=== PATIENT | male | born 1940 | race Caucasian/White ===

== ENCOUNTER → 2018-01-15 | Outpatient (CLI) | payer MEDICARE, OTHER | LOC: GMAM 11:49 | PROVIDERS: ATTEND Family Medicine | DX: R60.0 Localized edema (principal); R53.83 Other fatigue; N39.41 Urge incontinence; Z12.5 Encounter for screening for malignant neoplasm of prostate | CPT/HCPCS: 84439; 84443; 87086; G0103 ==

== ENCOUNTER → 2018-01-23 | Outpatient (CLI) | payer OTHER ==
--- NOTE | 2018-01-23 13:19 | MRI ---
CLINICAL HISTORY: 77 years Male, DOUBLE VISION COMPARISON: None available. TECHNIQUE: Multiplanar multiecho imaging of the brain was performed before and after the administration of intravenous contrast. FINDINGS: Significant T2 and FLAIR hyperintensities are identified in the bilateral frontal lobes. There is mild diffuse cortical volume loss as well. No acute major vascular territorial infarct or acute intraparenchymal hemorrhage. No intra-axial or extra-axial fluid collections are identified. No space-occupying lesion is identified. The cisterns and ventricles appear normal in caliber. The sella and suprasellar regions demonstrate no gross abnormality. The structures of the posterior fossa are intact. The visualized paranasal sinuses and mastoid air cells appear normal. The globes are intact bilaterally. Review of the bones demonstrates no gross abnormality. IMPRESSION: Significant T2 and FLAIR hyperintensities are identified in the bilateral frontal lobes. 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 Electronically signed by: Carolyn Whitlock MD 01/23/2018 1:17 PM CDT
== END ==
LOC: MRI 08:01
PROVIDERS: ATTEND Family Medicine
DX: H53.2 Diplopia (principal)

== ENCOUNTER 2018-06-02 11:40 | Emergency (ER) | payer MEDICARE, OTHER ==
[2018-06-02 12:12] VITALS: TEMP 98.3
--- NOTE | 2018-06-02 12:26 | ED.PDOC ---
History of Present Illness - General Chief Complaint: Trauma Stated Complaint: left groin pain Time Seen by Provider: 06/02/18 12:13 Source: patient Exam Limitations: no limitations - History of Present Illness Initial Comments: Marco Antonio Mccracken 77 y/o male [place] resident stated that he went outside the patio of [place] yesterday as he was trying to sit on a chair half way it tilted down causing him to fall on his buttocks then back of head hitting part of the chair.No LOC ,denies headache,but with sharp pains left groin on walking,no numbness or weakness,denies back pain. Timing/Duration: other - see hpi Severity: moderate Improving Factors: rest Worsening Factors: movement Associated Symptoms: other - see hpi Allergies/Adverse Reactions: Allergies NO KNOWN ALLERGY Allergy (Verified 06/02/18 12:01) Home Medications: Ambulatory Orders Tramadol HCl 50 mg PO TID PRN #20 tab 06/02/18 Review of Systems - Review of Systems Constitutional: States: no symptoms reported EENTM: States: no symptoms reported Respiratory: States: no symptoms reported Cardiology: States: no symptoms reported Gastrointestinal/Abdominal: States: no symptoms reported Genitourinary: States: no symptoms reported Musculoskeletal: States: see HPI Skin: States: no symptoms reported Neurological: States: no symptoms reported Past Medical History (General) - Patient Medical History Hx Stroke: No Hx Dementia: Yes Hx of COPD: No Hx Cardiac Disorders: Yes Hx Congestive Heart Failure: Yes Hx Diabetes: No Surgical History: other - ORIF right leg FX - Social History Hx Depression: Yes - Activities of Daily Living Senior Living/Assisted Living (if applicable):: [facility] (if applicable): [email or web address] Grooming Ability: Independent Eating (Feeding) Ability: Independent Toileting Ability: Independent Family Medical History - Family History Mother Family History: No Known Physical Exam - Physical Exam General Appearance: Alert, Comfortable, No apparent distress, Well Developed, Well Groomed Eye Exam: bilateral normal Ears, Nose, Throat: hearing grossly normal, normal ENT inspection, normal pharynx Neck: non-tender, full range of motion, supple, normal inspection Respiratory: chest non-tender, lungs clear, normal breath sounds, no respiratory distress Cardiovascular/Chest: normal peripheral pulses, regular rate, rhythm, no murmur Gastrointestinal/Abdominal: normal bowel sounds, non tender, soft, no organomegaly Back Exam: normal inspection, no CVA tenderness, no vertebral tenderness Extremity: normal range of motion, non-tender, normal inspection, no calf tenderness, pedal edema - +1, other - ROM slightly painful on external rotation hip left NO hernias noted Neurologic: no motor/sensory deficits, alert, oriented x 3 Skin Exam: normal color, warm/dry Lymphatic: no adenopathy Progress - Progress Progress: 06/02/18 12:29 Vital Signs - 24 hr 06/02/18 11:45 Temperature 98.3 F Pulse Rate [ 63 left brachial] Respiratory 20 Rate Blood Pressure 130/64 [left brachial] O2 Sat by Pulse 97 Oximetry - EKG/XRAY/CT XRAY: pelvis - and hips no fracture noted Departure - Departure Clinical Impression: Fall at fdc Qualifiers: Encounter type: initial encounter Qualified Code(s): W19.XXXA - Unspecified fall, initial encounter; Y92.129 - Unspecified place in fdc as the place of occurrence of the external cause; Y92.129 - Unspecified place in fdc as the place of occurrence of the external cause Contusion of buttock Qualifiers: Encounter type: initial encounter Qualified Code(s): S30.0XXA - Contusion of lower back and pelvis, initial encounter Groin pain Qualifiers: Laterality: left Qualified Code(s): R10.32 - Left lower quadrant pain Time of Disposition: 14:01 Disposition: Discharge to SNF Condition: Fair Departure Forms: ED Discharge - Pt. Copy, Patient Portal Self Enrollment Instructions: Contusion (DC) Referrals: Pa Jones MD [Primary Care Provider] - 1-2 Weeks Prescriptions: Tramadol HCl 50 mg PO TID PRN #20 tab PRN Reason: Pain Home Medications: Ambulatory Orders Tramadol HCl 50 mg PO TID PRN #20 tab 06/02/18 Additional Instructions: Follow up with primary Md 04 Jun 2018 as needed;Return to ER as needed
--- NOTE | 2018-06-02 13:37 | RAD ---
EXAM DESCRIPTION: Hip,Left 2 Views CLINICAL HISTORY: pain/fall COMPARISON: None FINDINGS: 3 views of left hip. No displaced hip fracture is demonstrated. No advanced osteoarthritis. Normal bone mineralization. Visualized left hemipelvis is unremarkable. IMPRESSION: No displaced hip fractures. If symptoms persist despite conservative management, consider noncontrast MRI for exclusion of a radiographically occult fracture. Electronically signed by: Monster Vela MD 06/02/2018 1:36 PM CDT
--- NOTE | 2018-06-02 13:38 | RAD ---
EXAM DESCRIPTION: Pelvis CLINICAL HISTORY: pain/fall. 77-year-old male with pelvic pain status post fall. COMPARISON: None FINDINGS: Single frontal view the pelvis. Mild bilateral degenerative sacroiliitis is seen. Sacral struts appear intact. Pelvic ring is intact. No displaced hip fractures. IMPRESSION: Negative for acute pathology. Electronically signed by: Monster Vela MD 06/02/2018 1:37 PM CDT
[2018-06-02] MEDS ORDERED: traMADol HCL 50 MG TAB PO ONE (14:18)
[2018-06-02 14:39] VITALS: BP 117/67; O2SAT 96
== END 2018-06-02 14:47 ==
LOC: ER 11:40
DX: S30.0XXA Contusion of lower back and pelvis, initial encounter (principal); R10.32 Left lower quadrant pain; I50.9 Heart failure, unspecified; F03.90 Unspecified dementia, unspecified severity, without behavioral disturbance, psychotic disturbance, mood disturbance, and anxiety; W18.39XA Other fall on same level, initial encounter; Y92.128 Other place in nursing home as the place of occurrence of the external cause

== ENCOUNTER 2018-08-13 17:39 | Emergency (ER) | payer MEDICARE, OTHER ==
[2018-08-13 18:03] VITALS: O2SAT 97
--- NOTE | 2018-08-13 18:40 | ED.PDOC ---
History of Present Illness - General Chief Complaint: Trauma Stated Complaint: s/p fall Time Seen by Provider: 08/13/18 18:36 Source: patient, family Exam Limitations: no limitations - History of Present Illness Initial Comments: HE FELL AT THE PR, NOW SUSTAINS AN ABRASION TO THE FOREHEAD AND TO THE NOSE. NO LOC. HE VOICES THAT HIS SHOES GRIPPED STRONGLY ON THE CARPET AND WHEN HE TURNED AROUND HE FELL. Timing/Duration: 1-3 hours Severity: moderate Improving Factors: nothing Worsening Factors: nothing Associated Symptoms: denies symptoms Allergies/Adverse Reactions: Allergies NO KNOWN ALLERGY Allergy (Verified 06/02/18 12:01) Home Medications: Ambulatory Orders Tramadol HCl 50 mg PO TID PRN #20 tab 06/02/18 Aspirin [Aspirin EC Low Dose] 81 mg PO DAILY 08/13/18 Bupropion HCl [Bupropion HCl Sr] 150 mg PO DAILY 08/13/18 Cholecalciferol [Vitamin D3] 5,000 unit PO DAILY 08/13/18 Citalopram Hydrobromide [Citalopram] 20 mg PO BEDTIME 08/13/18 Cyanocobalamin [B-12] 1,000 mcg PO DAILY 08/13/18 Donepezil HCl [Aricept] 5 mg PO BEDTIME 08/13/18 Fexofenadine HCl [[place] Allergy] 180 mg PO DAILY 08/13/18 Furosemide [Lasix] 20 mg PO PRN 08/13/18 Mirabegron [Myrbetriq] 25 mg PO DAILY 08/13/18 Potassium Chloride [Micro-K] 8 meq PO PRN 08/13/18 Pravastatin Sodium 20 mg PO DAILY 08/13/18 Ropinirole Hydrochloride [Ropinirole HCl] 4 mg PO DAILY 08/13/18 Review of Systems - Review of Systems Constitutional: States: no symptoms reported EENTM: States: no symptoms reported Respiratory: States: no symptoms reported Cardiology: States: no symptoms reported Gastrointestinal/Abdominal: States: no symptoms reported Genitourinary: States: no symptoms reported Musculoskeletal: States: no symptoms reported Skin: States: other - ABRASIONS TO THE FACE Past Medical History (General) - Patient Medical History Hx Stroke: No Hx Dementia: Yes Hx of COPD: No Hx Cardiac Disorders: Yes Hx Congestive Heart Failure: Yes Hx Diabetes: No - Vaccination History Hx Tetanus, Diphtheria Vaccination: - unknown Hx Influenza Vaccination: Yes Hx Pneumococcal Vaccination: Yes - Social History Hx Tobacco Use: Yes Hx Depression: Yes - Activities of Daily Living [facility] Living (if applicable):: [facility] Family Medical History - Family History Mother Family History: No Known Physical Exam - Physical Exam General Appearance: Alert, No apparent distress Eye Exam: bilateral normal Ears, Nose, Throat: hearing grossly normal Neck: non-tender Respiratory: chest non-tender Cardiovascular/Chest: normal peripheral pulses Peripheral Pulses: radial,right: 2+, radial,left: 2+ Gastrointestinal/Abdominal: normal bowel sounds, non tender, soft Extremity: normal range of motion, non-tender, normal inspection Neurologic: shelver II-XII nml as tested, no motor/sensory deficits, alert Skin Exam: other - ABRASION TO THE BRIDGE OF THE NOSE, NO SEPTAL CLOT NOTED, ABRASION TO THE CENTER OF THE FORHEAD Progress - Progress Progress: 08/13/18 19:50 THE HEAD, MAXILLOFACIAL AND CERVICAL SPINE CT W/O ANY ACUTE FRACTURES OR DISLOCATIONS. Departure - Departure Clinical Impression: Contusion of face Qualifiers: Encounter type: initial encounter Qualified Code(s): S00.83XA - Contusion of other part of head, initial encounter Time of Disposition: 19:51 Disposition: Discharge to Home or Self Care Condition: Good Departure Forms: ED Discharge - Pt. Copy, Patient Portal Self Enrollment Instructions: DI for Trauma Referrals: Pa Jones MD [Primary Care Provider] - 1-2 Weeks Home Medications: Ambulatory Orders Tramadol HCl 50 mg PO TID PRN #20 tab 06/02/18 Aspirin [Aspirin EC Low Dose] 81 mg PO DAILY 08/13/18 Bupropion HCl [Bupropion HCl Sr] 150 mg PO DAILY 08/13/18 Cholecalciferol [Vitamin D3] 5,000 unit PO DAILY 08/13/18 Citalopram Hydrobromide [Citalopram] 20 mg PO BEDTIME 08/13/18 Cyanocobalamin [B-12] 1,000 mcg PO DAILY 08/13/18 Donepezil HCl [Aricept] 5 mg PO BEDTIME 08/13/18 Fexofenadine HCl [[place] Allergy] 180 mg PO DAILY 08/13/18 Furosemide [Lasix] 20 mg PO PRN 08/13/18 Mirabegron [Myrbetriq] 25 mg PO DAILY 08/13/18 Potassium Chloride [Micro-K] 8 meq PO PRN 08/13/18 Pravastatin Sodium 20 mg PO DAILY 08/13/18 Ropinirole Hydrochloride [Ropinirole HCl] 4 mg PO DAILY 08/13/18
--- NOTE | 2018-08-13 19:38 | CT ---
EXAM DESCRIPTION: Head CLINICAL HISTORY: HEAD/FACE AND NECK INJURY COMPARISON: None Available. TECHNIQUE: Contiguous axial images of the brain were obtained without the administration of intravenous contrast.This exam was performed according to our departmental dose-optimization program, which includes automated exposure control, adjustment of the mA and/or kV according to patient size and/or use of iterative reconstruction technique. FINDINGS: There is no acute intracranial hemorrhage or mass effect. There are encephalomalacia changes within both frontal lobes. There is atherosclerosis. Areas of low attenuation in the periventricular and subcortical white matter are nonspecific but suggestive of small vessel disease. There is generalized atrophy. Ventricular system is within normal limits. There is adequate robles-white matter differentiation. There is no skull fracture. The visualized paranasal sinuses and mastoid air cells are within normal limits. IMPRESSION: No acute intracranial abnormalities. Electronically signed by: Benjamin Dwyer MD 08/13/2018 7:37 PM [facility]
--- NOTE | 2018-08-13 19:42 | CT ---
EXAM DESCRIPTION: Cervical Spine CLINICAL HISTORY: HEAD/FACE AND NECK INJURY COMPARISON: None Available TECHNIQUE: Contiguous axial images of the cervical spine were obtained without the administration of intravenous contrast followed by reconstruction images. This exam was performed according to our departmental dose-optimization program, which includes automated exposure control, adjustment of the mA and/or kV according to patient size and/or use of iterative reconstruction technique. FINDINGS: There is no acute fracture or subluxation. Prevertebral soft tissues are within normal limits. There is intervertebral disc space narrowing at C3-C4, C4-C5, C5-C6, C6-C7. There is right neural foramina narrowing at C3-C4, bilateral neural foramina narrowing at C4-C5, left neural foramina narrowing at C5-C6, and bilateral neural foramina narrowing at C6-C7. There is atherosclerosis. IMPRESSION: No acute fracture or subluxation. Degenerative changes. Electronically signed by: Benjamin Dwyer MD 08/13/2018 7:41 PM [facility]
--- NOTE | 2018-08-13 19:46 | CT ---
EXAM DESCRIPTION: Maxillofacial CLINICAL HISTORY: HEAD/FACE AND NECK INJURY COMPARISON: None Available. TECHNIQUE: Contiguous axial images of the face were obtained without the administration of intravenous contrast. This exam was performed according to our departmental dose-optimization program, which includes automated exposure control, adjustment of the mA and/or kV according to patient size and/or use of iterative reconstruction technique. FINDINGS: There are chronic sinusitis changes within the maxillary sinuses. There is no bony destruction. The retrobulbar fat is within normal limits. There is no acute facial fracture. There is no orbital emphysema. There is atherosclerosis. IMPRESSION: No acute abnormalities. Electronically signed by: Benjamin Dwyer MD 08/13/2018 7:45 PM [facility]
[2018-08-13] MEDS ORDERED: traMADol HCL 50 MG (ER DISP) # 6 TABS PO ONE (19:58)
[2018-08-13] MEDS ORDERED: traMADol HCL 50 MG TAB PO ONE (19:59)
[2018-08-13] MEDS ORDERED: NEOMYCIN-BACITRACIN-POLYMYXIN 0.9 GM UD TOP ONE ×2 (20:08→20:12)
[2018-08-13 20:28] VITALS: BP 118/72; TEMP 97.9
== END 2018-08-13 20:25 | disposition home or self-care (01) ==
LOC: ER 17:39
DX: S00.83XA Contusion of other part of head, initial encounter (principal); S00.31XA Abrasion of nose, initial encounter; M50.323 Other cervical disc degeneration at C6-C7 level; F03.90 Unspecified dementia, unspecified severity, without behavioral disturbance, psychotic disturbance, mood disturbance, and anxiety; I50.9 Heart failure, unspecified; W18.39XA Other fall on same level, initial encounter; Y92.129 Unspecified place in nursing home as the place of occurrence of the external cause; Z79.82 Long term (current) use of aspirin; Z79.899 Other long term (current) drug therapy; Z87.891 Personal history of nicotine dependence

== ENCOUNTER → 2018-09-10 | Outpatient (CLI) | payer MEDICARE, OTHER | LOC: YCHH 08:11 | PROVIDERS: ATTEND Family Medicine | DX: G20 Parkinson's disease (principal); E55.9 Vitamin D deficiency, unspecified; I10 Essential (primary) hypertension; D64.9 Anemia, unspecified; E78.5 Hyperlipidemia, unspecified ==

== ENCOUNTER → 2019-03-11 | Outpatient (CLI) | payer MEDICARE, OTHER | LOC: YCHH 08:04 | PROVIDERS: ATTEND Family Medicine | DX: G20 Parkinson's disease (principal); D64.9 Anemia, unspecified; E78.5 Hyperlipidemia, unspecified; I10 Essential (primary) hypertension ==

== ENCOUNTER → 2019-03-19 | Outpatient (CLI) | payer MEDICARE, OTHER | LOC: GMAM 15:12 | PROVIDERS: ATTEND Family Medicine | DX: I10 Essential (primary) hypertension (principal); E78.2 Mixed hyperlipidemia; E55.9 Vitamin D deficiency, unspecified; Z12.5 Encounter for screening for malignant neoplasm of prostate | CPT/HCPCS: 82306; G0103 ==

== ENCOUNTER 2019-07-20 12:05 | Emergency (ER) | payer MEDICARE, OTHER ==
[2019-07-20 12:40] VITALS: TEMP 97.6; O2SAT 96
--- NOTE | 2019-07-20 12:45 | ED.PDOC ---
History of Present Illness - General Chief Complaint: Lower Extremity Injury Stated Complaint: bilat LE swelling and left arm swelling Time Seen by Provider: 07/20/19 12:22 Source: patient - History of Present Illness Initial Comments: 78 yo male with PMH of chronic edema who is sent from his PCP office apparently for cc of swelling of lower extremity and skin changes. Pt is poor historian. Pt states he has had worsening swelling in both lower legs for about the past 1 week and also to left upper extremity. Reports noticing new ulcerating skin lesions to BL ankles, worse on the left side. This is accompanied by intermittent brief stinging pains to the ankles which last only a few seconds. No meds tried for relief. He states he has never had leg swelling before but on review of his med list he just had Lasix dosage increase from 20 to 40 mg once daily recently. Pt denies any fevers, chills, calf pain, chest pain, dyspnea, palpitations, abd pain, n/v/d. No known hx of DVT or PE. No reported cardiac hx. PCP is Dr. Jones. Allergies/Adverse Reactions: Allergies NO KNOWN ALLERGY Allergy (Verified 07/20/19 12:40) Home Medications: Ambulatory Orders Tramadol HCl 50 mg PO TID PRN #20 tab 06/02/18 Aspirin [Aspirin EC Low Dose] 81 mg PO DAILY 08/13/18 Bupropion HCl [Bupropion HCl Sr] 150 mg PO DAILY 08/13/18 Cholecalciferol [Vitamin D3] 5,000 unit PO DAILY 08/13/18 Citalopram Hydrobromide [Citalopram] 20 mg PO BEDTIME 08/13/18 Cyanocobalamin [B-12] 1,000 mcg PO DAILY 08/13/18 Donepezil HCl [Aricept] 5 mg PO BEDTIME 08/13/18 Fexofenadine HCl [[place] Allergy] 180 mg PO DAILY 08/13/18 Furosemide [Lasix] 20 mg PO PRN 08/13/18 Mirabegron [Myrbetriq] 25 mg PO DAILY 08/13/18 Potassium Chloride [Micro-K] 8 meq PO PRN 08/13/18 Pravastatin Sodium 20 mg PO DAILY 08/13/18 Ropinirole Hydrochloride [Ropinirole HCl] 4 mg PO DAILY 08/13/18 Tramadol HCl 50 mg PO Q6HRS #20 tab 08/13/18 Review of Systems - Review of Systems Review of Systems: 07/20/19 12:45 as per HPI All other Systems: Reviewed and Negative Past Medical History (General) - Patient Medical History Hx Stroke: No Hx Dementia: Yes Hx of COPD: No Hx Cardiac Disorders: Yes Hx Congestive Heart Failure: Yes Hx Diabetes: No - Vaccination History Hx Tetanus, Diphtheria Vaccination: - unknown Hx Influenza Vaccination: Yes Hx Pneumococcal Vaccination: Yes - Social History Hx Tobacco Use: Yes Hx Depression: Yes - Activities of Daily Living Detention/Assisted Living (if applicable):: [facility] Family Medical History - Family History Mother Family History: No Known Physical Exam - Physical Exam General Appearance: Alert, No apparent distress Eyes, Ears, Nose, Throat: PERRL/EOMI, normal ENT inspection Neck: non-tender, full range of motion, supple, normal inspection Cardiovascular/Respiratory: regular rate, rhythm, no M/R/G, normal peripheral p ulses, normal breath sounds, no respiratory distress Gastrointestinal/Abdominal: non-tender, no organomegaly Back: normal inspection, no CVA tenderness Thigh/Hip: normal inspection, non-tender Leg: no evidence of injury, normal ROM, swelling - 3+ BL LE pitting edema involving feet, ankles and calves. There are moderate chronic venous stasis dermatitis changes with skin thickening, dryness, scaling, and small superificial ulcerating wounds to BL ankles with scant serous drainage - no noted erythema/warmth/purulent drainage. Minimal ttp. Onel sign negative BL. Left leg slightly more swollen than right. Left UE with 2+ pitting edema from upper arm to left hand, no erythema/warmth/tenderness Knee: normal inspection, non-tender Foot: non-tender Neuro/Tendon: normal sensation, normal motor functions Mental Status: alert Skin: warm/dry, other - chronic venous stasis dermatitis changes to BL LE's as above Progress - Progress Progress: 07/20/19 12:49 BL LE swelling -appears very chronic in nature given chronic skin changes and venous stasis dermatitis findings which would take several weeks to months to develop -edema differential: CHF vs venous insufficiency most likely. Consider also nephrotic syndrome vs liver disease vs protein-wasting/malnutrition vs other. DVT appears unlikely as cause of BL LE swelling but consider for LUE swelling -pt NAD, vitals wnl -check d dimer, CBC, BMP, BNP 07/20/19 13:28 -D dimer is elevated to 2.64. No prior labs for comparison. Given BL LE swelling & LUE swelling, will obtain doppler venous US stat all 4 extremities to check for DVT 07/20/19 15:59 -Doppler venous US shows no evidence of DVT in all 4 extremities. -Dc home in good condition. Discussed home care of edema and venous stasis dermatitis. F/u closely with PCP. Return warnings discussed. Marco Antonio Chicas MD Billing #[id number] Departure - Departure Clinical Impression: Venous stasis dermatitis of both lower extremities Edema Qualifiers: Edema type: generalized Qualified Code(s): R60.1 - Generalized edema Time of Disposition: 16:00 Disposition: Discharge to Home or Self Care Condition: Fair Departure Forms: ED Discharge - Pt. Copy, Patient Portal Self Enrollment Instructions: Dependent Edema (DC) Referrals: Pa Jones MD [Primary Care Provider] - 1-2 Weeks Home Medications: Ambulatory Orders Tramadol HCl 50 mg PO TID PRN #20 tab 06/02/18 Aspirin [Aspirin EC Low Dose] 81 mg PO DAILY 08/13/18 Bupropion HCl [Bupropion HCl Sr] 150 mg PO DAILY 08/13/18 Cholecalciferol [Vitamin D3] 5,000 unit PO DAILY 08/13/18 Citalopram Hydrobromide [Citalopram] 20 mg PO BEDTIME 08/13/18 Cyanocobalamin [B-12] 1,000 mcg PO DAILY 08/13/18 Donepezil HCl [Aricept] 5 mg PO BEDTIME 08/13/18 Fexofenadine HCl [[place] Allergy] 180 mg PO DAILY 08/13/18 Furosemide [Lasix] 20 mg PO PRN 08/13/18 Mirabegron [Myrbetriq] 25 mg PO DAILY 08/13/18 Potassium Chloride [Micro-K] 8 meq PO PRN 08/13/18 Pravastatin Sodium 20 mg PO DAILY 08/13/18 Ropinirole Hydrochloride [Ropinirole HCl] 4 mg PO DAILY 08/13/18 Tramadol HCl 50 mg PO Q6HRS #20 tab 08/13/18 Additional Instructions: Follow the handouts given for chronic swelling of the legs and venous stasis dermatitis and how to treat it. Follow up closely with your primary care doctor in 1-2 weeks or sooner as needed.
--- NOTE | 2019-07-20 15:54 | US ---
EXAM DESCRIPTION: Venous,Lower Extremity LT (accession [id number]), Venous,Lower Extremity RT (accession [id number]): Ultrasound. CLINICAL HISTORY: BL LE swelling, d dimer elevation COMPARISON: Bilateral upper extremity duplex deep venous evaluation same visit. TECHNIQUE: Two -dimensional and doppler sonographic evaluation of the deep venous system of the bilateral lower extremities. FINDINGS: Doppler evaluation shows normal color flow and normal phasicity and augmentation of the bilateral common femoral veins, junctions with the bilateral proximal saphenous veins, femoral veins, popliteal veins, proximal greater saphenous vein, peroneal and posterior tibial veins. These veins showed normal occlusion with transducer pressure. Two-dimensional survey showed no echogenic clot within these veins. IMPRESSION: Duplex ultrasound evaluation of the bilateral lower extremity deep venous systems showing no evidence of thrombosis. Electronically signed by: Kodi Ortega MD 07/20/2019 3:52 PM [employer]
--- NOTE | 2019-07-20 15:54 | US ---
EXAM DESCRIPTION: Venous,Lower Extremity LT (accession [id number]), Venous,Lower Extremity RT (accession [id number]): Ultrasound. CLINICAL HISTORY: BL LE swelling, d dimer elevation COMPARISON: Bilateral upper extremity duplex deep venous evaluation same visit. TECHNIQUE: Two -dimensional and doppler sonographic evaluation of the deep venous system of the bilateral lower extremities. FINDINGS: Doppler evaluation shows normal color flow and normal phasicity and augmentation of the bilateral common femoral veins, junctions with the bilateral proximal saphenous veins, femoral veins, popliteal veins, proximal greater saphenous vein, peroneal and posterior tibial veins. These veins showed normal occlusion with transducer pressure. Two-dimensional survey showed no echogenic clot within these veins. IMPRESSION: Duplex ultrasound evaluation of the bilateral lower extremity deep venous systems showing no evidence of thrombosis. Electronically signed by: Kodi Ortega MD 07/20/2019 3:52 PM [employer]
[2019-07-20 15:57] VITALS: BP 142/67
--- NOTE | 2019-07-20 15:57 | US ---
EXAM DESCRIPTION: Venous,Upper Extremity LT (accession [id number]), Venous,Upper Extremity RT (accession [id number]): ULTRASOUND. CLINICAL HISTORY: LUE swelling, d dimer elevation COMPARISON: None Available. TECHNIQUE: Two -dimensional and doppler sonographic evaluation of the deep venous system of the bilateral upper extremities FINDINGS: Doppler evaluation shows normal color flow and normal phasicity and augmentation of the bilateral subclavian, jugular, axillary, basilic, cephalic, brachial, radial vein and ulnar veins The bilateral upper extremity deep veins showed normal occlusion with transducer pressure. Two-dimensional survey showed no echogenic thrombus within these veins. IMPRESSION: Duplex ultrasound evaluation of the bilateral upper extremity deep venous system showing no thrombosis. No dominant solid mass, no distinct cyst, and no large calcifications . Electronically signed by: Kodi Ortega MD 07/20/2019 3:56 PM [employer]
--- NOTE | 2019-07-20 15:57 | US ---
EXAM DESCRIPTION: Venous,Upper Extremity LT (accession [id number]), Venous,Upper Extremity RT (accession [id number]): ULTRASOUND. CLINICAL HISTORY: LUE swelling, d dimer elevation COMPARISON: None Available. TECHNIQUE: Two -dimensional and doppler sonographic evaluation of the deep venous system of the bilateral upper extremities FINDINGS: Doppler evaluation shows normal color flow and normal phasicity and augmentation of the bilateral subclavian, jugular, axillary, basilic, cephalic, brachial, radial vein and ulnar veins The bilateral upper extremity deep veins showed normal occlusion with transducer pressure. Two-dimensional survey showed no echogenic thrombus within these veins. IMPRESSION: Duplex ultrasound evaluation of the bilateral upper extremity deep venous system showing no thrombosis. No dominant solid mass, no distinct cyst, and no large calcifications . Electronically signed by: Kodi Ortega MD 07/20/2019 3:56 PM [employer]
== END 2019-07-20 15:20 | disposition home or self-care (01) ==
LOC: ER 12:05
DX: R60.0 Localized edema (principal); I87.2 Venous insufficiency (chronic) (peripheral); L97.319 Non-pressure chronic ulcer of right ankle with unspecified severity; L97.329 Non-pressure chronic ulcer of left ankle with unspecified severity; F32.9 Major depressive disorder, single episode, unspecified; F03.90 Unspecified dementia, unspecified severity, without behavioral disturbance, psychotic disturbance, mood disturbance, and anxiety; I50.9 Heart failure, unspecified; Z87.891 Personal history of nicotine dependence; Z79.82 Long term (current) use of aspirin; Z79.899 Other long term (current) drug therapy

== ENCOUNTER → 2019-09-28 | Outpatient (CLI) | payer MEDICARE, OTHER | LOC: YCHH 09:06 | PROVIDERS: ATTEND Family Medicine | DX: E55.9 Vitamin D deficiency, unspecified (principal); D64.9 Anemia, unspecified; E78.5 Hyperlipidemia, unspecified; G20 Parkinson's disease; I10 Essential (primary) hypertension ==

== ENCOUNTER 2019-10-16 12:55 | Inpatient (IN) | payer MEDICARE, OTHER ==
--- NOTE | 2019-10-16 13:34 | HP ---
SUPERVISING PHYSICIAN: Pa Jones MD CHIEF COMPLAINT: Bilateral cellulitis, lower extremities. HISTORY OF PRESENT ILLNESS: Mr. Mccracken is an 79 year-old male patient who resides at [facility] with a history of significant dementia. He was seen in the in the clinic today complaining of some lower extremity edema. Left was greater than the right. This had been going on for over 5 days. He had initially been treated with some Lasix with workup with Doppler studies which were found to be negative. He has a history of chronic venous stasis ulcers and is having [facility] wrap the legs with bandages and do wound care. This has progressively worsened over the last several. He presented to Dr. Jones's office today and it was noted the extremities were still red, swollen and obviously had been having some drainage. A wound culture was obtained on the left leg and he was sent to the hospital for direct admission for initiation for parenteral antibiotics, having failure to respond to conservative measurements in outpatient setting. There was no lab work done in the clinic, due to the patient presenting to the clinic he was sent to the hospital for further workup. Laboratory studies on admission showed he had a white count of 5,700 with hemoglobin 12.1, hematocrit 37.0, platelet count 252,000, differential showed to be without a left shift. His ESR was elevated at 47. Chemistries showed normal electrolytes. Carbon dioxide was slightly elevated at 32 with BUN of 17 with creatinine of 1.33 with the patient's baseline being around 1.25. Lactic acid 1.8. Liver functions all was negative. C-reactive protein was elevated at 1.1. BNP was normal at 97. Urinalysis was within normal limits. Radiographic studies: Arterial Doppler study of the right leg, due to the fact there was decreased pulses compared to the left showed per radiology interpretation, likely small early arthrosclerotic occlusive lesion in the right anterior tibial artery or right dorsal pedis artery, was noted unremarkable in the more proximal right lower extremity arterial system. Chest x-ray showed stable chest compared to 2018 with no new findings. A review of his medical records showed he had an echocardiogram done in July of 2019. At that time, it showed an estimated ejection fraction of 60% with a grade 1 diastolic dysfunction. The patient was directly admitted for initiation of as necessary therapy given the bilateral edema and failure to respond as an outpatient. He was admitted in stable condition. PAST MEDICAL HISTORY: 1. Hyperlipidemia. 2. Hypertension. 3. Diastolic heart failure with last echocardiogram in July 2019 showing ejection fraction of 60%. 4. Depression. 5. Alzheimer's disease with dementia. 6. Parkinson's diagnosed in 2017 with questionable Lewy body type. PAST SURGICAL HISTORY: Repair of leg fracture. No other major surgeries listed. CURRENT MEDICATIONS: ALLERGIES: FAMILY HISTORY: Noncontributory. SOCIAL HISTORY: The patient is originally from [place], [place] but lives in [place] at [facility]. He is , he has 2 children. He does not drink alcohol or uses drugs and he has a very minimal history of smoking cigarettes. REVIEW OF SYSTEMS: CONSTITUTIONAL: Denies any fevers, chills, general malaise, unintentional weight loss.. HEENT: Negative for sore throats, earaches, nasal congestion, vision changes. RESPIRATORY: Denies coughing, wheezing shortness of breath. CARDIOVASCULAR: Negative for chest pain, palpitations or syncopal episodes, tachycardia. GASTROINTESTINAL: Denies nausea or vomiting, diarrhea, constipation or abdominal pain. GENITOURINARY: Negative for dysuria, hematuria, polyuria. MUSCULOSKELETAL: Erythematous bilateral lower extremity edema with a wound to the right leg. NEUROLOGIC: Denies ataxia, seizures or syncopal episodes, headaches or other focal deficits. HEMATOLOGIC: Denies any easy bruising or unexplained bleeding or transfusion reactions. PHYSICAL EXAMINATION: VITAL SIGNS: Temperature 98.2, pulse 67, blood pressure 158/76, respirations 16, oxygen saturation 90% on room air. GENERAL: The patient is resting comfortably. Appears to be in no acute distress. He is alert. HEENT: Tympanic membranes are clear bilaterally. Oropharynx pink and moist without lesions. NECK: Supple, non-tender, full range of motion. No jugular venous distention. CHEST: Lung sounds clear to auscultation without rhonchi, rales, or wheezes. CARDIOVASCULAR: Regular rate and rhythm without appreciable murmurs, rubs, or gallops. ABDOMEN: Obese, soft, non-tender, positive bowel sounds. EXTREMITIES: Bilateral stasis ulcers with chronic changes, discoloration, there is a wound on the medial aspect of the right leg the size of a dime with no obvious drainage. Pulses were weak but palpable and obtainable by Doppler studies. Both legs were showing to be erythemic, tight, tender on palpation with edema extending from the foot up to mid friedman bilaterally. No calf tenderness. NEUROLOGIC: Cranial nerves II through XII appear grossly intact. Facial features were symmetrical. Extraocular movements within normal limits. There is no notable nystagmus. He is alert and oriented x 3. LABORATORY: CBC showed white count of 5,700, hemoglobin 12.1, hematocrit 37.0, platelet count 252,000. Differential showed to be without a left shift. He did have an elevated ESR at 47. Chemistries showed normal electrolytes with just slightly elevated carbon dioxide at 32, BUN 17, creatinine up to 1.33 from baseline of about 1.2. Lactic acid normal at 1.8, liver functions within normal limits. C-reactive protein was elevated at 1.1. Urinalysis per cath urine was all within normal limits. MICROBIOLOGY: Blood cultures pending. Right leg wound culture is pending. RADIOLOGY: Arterial Doppler of the right leg showed small atherosclerotic occlusion lesion in the right anterior tibial artery and right dorsal pedis artery with the rest being unremarkable in the proximal right lower extremity arterial system. Chest x-ray was without any acute findings. ASSESSMENT: 1. Bilateral lower extremity cellulitis failing to response to outpatient treatment measures. 2. Wound to the right leg with stasis ulcers. 3. History of hypertension. 4. Chronic congestive heart failure with grade 1 diastolic dysfunction with last echocardiogram in July 2019 showing ejection fraction of 60%. 5. Depression with Alzheimer's disease and dementia. 6. Parkinson's disease with question of Lewy body type. PLAN: Mr. Mccracken is going to be admitted for worsening cellulitis of the lower extremities with stasis ulcers for initiation of parenteral antibiotics and diuresis with Lasix to prevent worsening of the extremities. He will have his legs elevated while in bed or in a chair. Will have him on DVT prophylaxis with Lovenox per protocol. he will be on a regular diet. Will go ahead and diurese him with Lasix 40 mg daily. Will start him on antibiotics to include vancomycin and Rocephin. I would anticipate his length of stay to be at least 2 to 3 days. Until we can transition him to outpatient management, we will continue to monitor and treat as needed. #[id number] [facility]
[2019-10-16] MEDS ORDERED: ACETAMINOPHEN SUPPOSITORY 650 MG PR PRN (14:07)
[2019-10-16] MEDS ORDERED: MAGNESIUM HYDROXIDE 30 ML UD PO PRN (14:07)
[2019-10-16] MEDS ORDERED: SODIUM CHLORIDE 0.9% (FLUSH) 10 ML SYG IV PRN (14:07)
[2019-10-16] MEDS ORDERED: ALUM & MAG HYDROX-SIMETHICONE 30 ML UD PO PRN (14:07)
[2019-10-16] MEDS ORDERED: ONDANSETRON INJ 4 MG/2 ML VIAL IV PRN (14:07)
[2019-10-16] MEDS ORDERED: ACETAMINOPHEN 325 MG TAB PO PRN (14:07)
[2019-10-16] MEDS ORDERED: VANCOMYCIN HCL INJ 1,000 MG, VANCOMYCIN HCL INJ 500 MG in SODIUM CHLORIDE 0.9% 250ML 25... IVPB ONE (14:14)
[2019-10-16] MEDS ORDERED: IV SET AND CAP CHANGE INJ INJ SCH (14:30)
[2019-10-16] MEDS ORDERED: SODIUM CHL 0.9% 50ML MIN-BAG+ 50 ML IVPB ONE (14:50)
[2019-10-16] MEDS ORDERED: cefTRIAXone SODIUM 1 GM VIAL ONE (14:50)
[2019-10-16] MEDS ORDERED: VANCOMYCIN HCL INJ 500 MG VIAL ONE (14:50)
[2019-10-16] MEDS ORDERED: SODIUM CHLORIDE 0.9% 250ML 250 ML ONE (14:50)
[2019-10-16] MEDS ORDERED: VANCOMYCIN HCL INJ 1,000 MG VIAL IVPB ONE (14:51)
[2019-10-16] MEDS: cefTRIAXone SODIUM 1 GM in SODIUM CHL 0.9% 50ML MIN-BAG+ 50 ML IVPB SCH (15:00)
--- NOTE | 2019-10-16 15:44 | US ---
EXAM DESCRIPTION: Extremity,Lower RT Arteries: Ultrasound. CLINICAL HISTORY: edema COMPARISON: None. TECHNIQUE: Doppler evaluation of the bilateral lower extremity arterial flow waveforms and velocities. FINDINGS: Arterial waveforms in the right lower extremity are multiphasic from the right common femoral artery through the right posterior tibial artery. Good velocities are monophasic the right dorsalis pedis artery.. Comments: Monophasic right dorsalis pedis artery. IMPRESSION: Likely small early atherosclerotic occlusive lesion in the right anterior tibial artery or right dorsalis pedis artery. Unremarkable in the more proximal right lower extremity arterial system Electronically signed by: Kodi Ortega MD 10/16/2019 3:43 PM STATION AGENT
--- NOTE | 2019-10-16 16:24 | RAD ---
EXAM DESCRIPTION: Chest,2 Views: KAVON/ CLINICAL HISTORY: 79 years Male SOB COMPARISON: Portable 2 view chest January 2019. TECHNIQUE: Two views. PA and Lateral. FINDINGS: Lungs: Moderate expansion. Minimal interstitial markings. Stable scarring in the left lung base and lateral costophrenic angle. No acute consolidation. Pleural spaces: No effusion or pneumothorax. Heart: Normal size. Pulmonary Vascularity: Not increased. Mediastinum: Not widened. Aorta: Senescent appearance. Bony Thorax/Spine: No acute bony thoracic abnormalities. Decreased bone density. Compression deformity T9 vertebral body stable since January 2018.. IMPRESSION: Senescent chest with no acute infiltrate. Stable since January 2018. Electronically signed by: Kodi Ortega MD 10/16/2019 4:22 PM BUFFET SERVER
[2019-10-16] MEDS ORDERED: VANCOMYCIN PER PHARMACY IVPB SCH (16:30)
[2019-10-16] MEDS ORDERED: ESCITALOPRAM 10 MG TAB ONE (20:53)
[2019-10-16] MEDS: PRAVASTATIN SODIUM 20 MG TAB PO SCH (20:55)
[2019-10-16] MEDS: ENOXAPARIN SODIUM 40 MG/0.4 ML SYG SUBCU SCH (20:55)
[2019-10-16] MEDS ORDERED: NON-FORMULARY MEDICATION 1 EA MIS (Escitalopram Oxalate [Lexapro] 20 MG) PO SCH (21:00)
[2019-10-16] MEDS ORDERED: NON-FORMULARY MEDICATION 1 EA MIS (Ropinirole Hydrochloride [Ropinirole Hcl] 4 MG) PO SCH (21:00)
[2019-10-16] MEDS: NON-FORMULARY MEDICATION 1 EA MIS (Mirabegron [Myrbetriq] 25 MG) PO SCH (22:30)
[2019-10-16] MEDS: PIMAVANSERIN TARTRATE 34 MG PO SCH (22:32)
[2019-10-17] MEDS: HYDROcodone 5MG/APAP 325MG 1 EA TAB PO PRN ×2 (04:19→18:02)
[2019-10-17] MEDS ORDERED: cefTRIAXone SODIUM 1 GM VIAL ONE (07:07)
[2019-10-17] MEDS ORDERED: SODIUM CHL 0.9% 50ML MIN-BAG+ 50 ML IVPB ONE (07:07)
[2019-10-17] MEDS: FUROSEMIDE INJ 40 MG/4 ML VIAL IV SCH (08:26)
[2019-10-17] MEDS: POLYETHYLENE GLYCOL 3350 17 GM PCKT PO SCH (08:27)
[2019-10-17] MEDS: NON-FORMULARY MEDICATION 1 EA MIS (Fexofenadine Hcl [Allegra Allergy] 180 MG) PO SCH (08:27)
[2019-10-17] MEDS: ASPIRIN (ENTERIC COATED) 81 MG TAB PO SCH (08:27)
[2019-10-17] MEDS: cefTRIAXone SODIUM 1 GM in SODIUM CHL 0.9% 50ML MIN-BAG+ 50 ML IVPB SCH (13:49)
[2019-10-17] MEDS ORDERED: VANCOMYCIN HCL INJ 500 MG VIAL ONE (13:55)
[2019-10-17] MEDS ORDERED: VANCOMYCIN HCL INJ 1,000 MG VIAL IVPB ONE (13:55)
[2019-10-17] MEDS ORDERED: SODIUM CHLORIDE 0.9% 250ML 250 ML ONE (13:55)
[2019-10-17] MEDS: VANCOMYCIN HCL INJ 1,000 MG, VANCOMYCIN HCL INJ 500 MG in SODIUM CHLORIDE 0.9% 250ML 25... IVPB SCH (14:31)
[2019-10-17] MEDS: ENOXAPARIN SODIUM 40 MG/0.4 ML SYG SUBCU SCH (21:18)
[2019-10-17] MEDS: ESCITALOPRAM 10 MG TAB PO SCH (21:18)
[2019-10-17] MEDS: PRAVASTATIN SODIUM 20 MG TAB PO SCH (21:18)
[2019-10-17] MEDS: NON-FORMULARY MEDICATION 1 EA MIS (Mirabegron [Myrbetriq] 25 MG) PO SCH (21:19)
[2019-10-17] MEDS: PIMAVANSERIN TARTRATE 34 MG PO SCH (21:19)
[2019-10-18] MEDS: FUROSEMIDE INJ 40 MG/4 ML VIAL IV SCH (09:21)
[2019-10-18] MEDS: SODIUM CHLORIDE 0.9% (FLUSH) 10 ML SYG IV SCH ×2 (09:22→20:10)
[2019-10-18] MEDS: POLYETHYLENE GLYCOL 3350 17 GM PCKT PO SCH (09:22)
[2019-10-18] MEDS: ASPIRIN (ENTERIC COATED) 81 MG TAB PO SCH (09:22)
[2019-10-18] MEDS: NON-FORMULARY MEDICATION 1 EA MIS (Fexofenadine Hcl [Allegra Allergy] 180 MG) PO SCH (09:22)
--- NOTE | 2019-10-18 09:51 | PN ---
SUPERVISING PHYSICIAN: Pa Jones MD DATE: 10/17/19 SUBJECTIVE: The patient feels like he is doing a little better today. His legs do not look quite as achy and edematous. He has remained febrile. He has had no chest pain, no nausea or vomiting. OBJECTIVE: VITAL SIGNS: Temperature 97.4, pulse 71, blood pressure 131/76, respirations 16, oxygen saturation 95% on room air. GENERAL: The patient is resting comfortably, appears to be in no acute distress. CHEST: Clear to auscultation. HEART: Regular rate and rhythm. ABDOMEN: Soft, non-tender, positive bowel sounds. EXTREMITIES: Bilaterally still shows a trace of edema but certainly improved from yesterday. You can actually see some wrinkles on both lower extremities. The medial aspect on the right leg still show an area of drainage but it is more serous, no obvious pure drainage. Pulses are still weak but are palpable, both legs are less tender to palpation. He has no calf tenderness today. NEUROLOGIC: He is alert and oriented x 3. LABORATORY: No additional studies today.' RADIOLOGY: No additional studies. ASSESSMENT: 1. Bilateral lower extremity cellulitis failing to response to outpatient treatment measures. 2. Wound to the right leg with stasis ulcers. 3. History of hypertension. 4. Chronic congestive heart failure with grade 1 diastolic dysfunction with last echocardiogram in July 2019 showing ejection fraction of 60%. 5. Depression with Alzheimer's disease and dementia. 6. Parkinson's disease with question of Lewy body type. PLAN: Will continue for an additional 24-48 hours with IV antibiotics with Rocephin and vancomycin. He will continue to have his legs elevated while he is in the chair and the bed. He will remain on DVT prophylaxis per protocol with Lovenox. Resumed his home medications. Will continue to diurese with Lasix 40 mg daily. Until we can transition him to outpatient management, we will continue to monitor and treat as needed. #[id number] [facility]
[2019-10-18] MEDS ORDERED: cefTRIAXone SODIUM 1 GM VIAL ONE (15:32)
[2019-10-18] MEDS ORDERED: SODIUM CHL 0.9% 50ML MIN-BAG+ 50 ML IVPB ONE (15:32)
[2019-10-18] MEDS: cefTRIAXone SODIUM 1 GM in SODIUM CHL 0.9% 50ML MIN-BAG+ 50 ML IVPB SCH (15:34)
[2019-10-18] MEDS ORDERED: VANCOMYCIN HCL INJ 500 MG VIAL ONE (16:11)
[2019-10-18] MEDS ORDERED: SODIUM CHLORIDE 0.9% 250ML 250 ML ONE (16:11)
[2019-10-18] MEDS ORDERED: VANCOMYCIN HCL INJ 1,000 MG VIAL IVPB ONE (16:11)
[2019-10-18] MEDS: VANCOMYCIN HCL INJ 1,000 MG, VANCOMYCIN HCL INJ 500 MG in SODIUM CHLORIDE 0.9% 250ML 25... IVPB SCH (16:27)
--- NOTE | 2019-10-18 17:59 | PN ---
SUPERVISING PHYSICIAN: Pa Jones MD DATE: 10/18/19 SUBJECTIVE: The patient continues to do well. He has been afebrile. He has had no further complaints. He has had good response to treatment with the legs showing to be significantly reduced in edema and the cellulitis is resolving.. I discussed with him and his daughter the plan would be to discharge tomorrow, will start oral antibiotics after further indices are completed. OBJECTIVE: VITAL SIGNS: Temperature 97.5, pulse 58, blood pressure 115/70, respirations 16, oxygen saturation 97% on room air. I&O: Negative balance of 275, had one bowel movement. Weight is 81.2 kg. GENERAL: The patient is resting comfortably, visiting with his daughter. . CHEST: Clear to auscultation. HEART: Regular rate and rhythm. ABDOMEN: Soft, non-tender, positive bowel sounds. EXTREMITIES: Show much improved in regards to the edema. There is no obvious edema at this point. He still has some mild erythema. No obvious serous drainage is noted. Pulses still remain faint but palpable and he has no calf tenderness.. NEUROLOGIC: He is alert and oriented x 3. LABORATORY: Chemistries showed to be within normal limits with normal creatinine, calcium 8.9. ASSESSMENT: 1. Bilateral lower extremity cellulitis failing to response to outpatient treatment measures. 2. Wound to the right leg with stasis ulcers. 3. History of hypertension. 4. Chronic congestive heart failure with grade 1 diastolic dysfunction with last echocardiogram in July 2019 showing ejection fraction of 60%. 5. Depression with Alzheimer's disease and dementia. 6. Parkinson's disease with question of Lewy body type. PLAN: Will continue with antibiotic coverage with Rocephin and vancomycin for an additional 24 hours. Will go ahead and image again tomorrow with both bilateral Doppler studies to rule out a DVT as well as additional arterial study on the left leg. At that point, he should be able to transition to oral medication including doxycycline and have followup with Dr. Jones in the outpatient setting. Until then, we will continue to monitor and treat as needed. #[id number] [facility]
[2019-10-18] MEDS: PIMAVANSERIN TARTRATE 34 MG PO SCH (20:08)
[2019-10-18] MEDS: ENOXAPARIN SODIUM 40 MG/0.4 ML SYG SUBCU SCH (20:09)
[2019-10-18] MEDS: ESCITALOPRAM 10 MG TAB PO SCH (20:10)
[2019-10-18] MEDS: PRAVASTATIN SODIUM 20 MG TAB PO SCH (20:10)
[2019-10-18] MEDS: NON-FORMULARY MEDICATION 1 EA MIS (Mirabegron [Myrbetriq] 25 MG) PO SCH (20:10)
[2019-10-19] MEDS ORDERED: BIFIDOBACTERIUM INFANTIS 4 MG CAP ONE (07:07)
[2019-10-19] MEDS ORDERED: LORATADINE 10 MG TAB PO SCH (09:00)
[2019-10-19 09:01] VITALS: O2SAT 97
--- NOTE | 2019-10-19 10:48 | US ---
EXAM DESCRIPTION: Venous,Lower Extremity LT (accession [id number]), Venous,Lower Extremity RT (accession [id number]): Ultrasound. CLINICAL HISTORY: Bilateral LE edema COMPARISON: None Available. TECHNIQUE: Two -dimensional and doppler sonographic evaluation of the deep venous system of the bilateral lower extremities. FINDINGS: Doppler evaluation shows normal color flow and normal phasicity and augmentation of the bilateral common femoral veins, junctions with the bilateral proximal saphenous veins, femoral veins, popliteal veins, greater saphenous vein, peroneal and posterior tibial veins. These veins showed normal occlusion with transducer pressure. Two-dimensional survey showed no echogenic clot within these veins. IMPRESSION: Duplex ultrasound evaluation of the bilateral lower extremity deep venous systems showing no evidence of thrombosis. Electronically signed by: Kodi Ortega MD 10/19/2019 10:46 AM DEBT AND BUDGET COUNSELOR
--- NOTE | 2019-10-19 10:48 | US ---
EXAM DESCRIPTION: Venous,Lower Extremity LT (accession [id number]), Venous,Lower Extremity RT (accession [id number]): Ultrasound. CLINICAL HISTORY: Bilateral LE edema COMPARISON: None Available. TECHNIQUE: Two -dimensional and doppler sonographic evaluation of the deep venous system of the bilateral lower extremities. FINDINGS: Doppler evaluation shows normal color flow and normal phasicity and augmentation of the bilateral common femoral veins, junctions with the bilateral proximal saphenous veins, femoral veins, popliteal veins, greater saphenous vein, peroneal and posterior tibial veins. These veins showed normal occlusion with transducer pressure. Two-dimensional survey showed no echogenic clot within these veins. IMPRESSION: Duplex ultrasound evaluation of the bilateral lower extremity deep venous systems showing no evidence of thrombosis. Electronically signed by: Kodi Ortega MD 10/19/2019 10:46 AM TRANSPLANTER ORCHID
--- NOTE | 2019-10-19 10:51 | US ---
EXAM DESCRIPTION: Extremity,Lower LT Arteries: Ultrasound. CLINICAL HISTORY: BiLE edema/pain COMPARISON: None. TECHNIQUE: Doppler evaluation of the bilateral lower extremity arterial flow waveforms and velocities. FINDINGS: Arterial waveforms in the left lower extremity are multiphasic from the common femoral artery to the distal left femoral artery. Then velocity but monophasic in the left popliteal artery, peroneal artery, and posterior tibial artery. Blunted and monophasic in the left dorsalis pedis artery... Comments: See below. 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 Mild disease in the left peroneal/posterior tibial trunk and vessels. Electronically signed by: Kodi Ortega MD 10/19/2019 10:50 AM MAIL HANDLERS SUPERVISOR
[2019-10-19] MEDS: ASPIRIN (ENTERIC COATED) 81 MG TAB PO SCH (10:54)
[2019-10-19] MEDS: FUROSEMIDE INJ 40 MG/4 ML VIAL IV SCH (10:54)
[2019-10-19] MEDS: SODIUM CHLORIDE 0.9% (FLUSH) 10 ML SYG IV SCH (10:55)
[2019-10-19] MEDS: POLYETHYLENE GLYCOL 3350 17 GM PCKT PO SCH (10:55)
[2019-10-19 12:31] VITALS: BP 107/68; TEMP 98.9
--- NOTE | 2019-10-23 09:09 | DS ---
SUPERVISING PHYSICIAN: Pa Jones MD ADMISSION DIAGNOSES: 1. Bilateral lower extremity cellulitis failing to response to outpatient treatment measures. 2. Wound to the right leg with stasis ulcers. 3. History of hypertension. 4. Chronic congestive heart failure with grade 1 diastolic dysfunction with last echocardiogram in July 2019 showing ejection fraction of 60%. 5. Depression with Alzheimer's disease and dementia. 6. Parkinson's disease with question of Lewy body type. DISCHARGE DIAGNOSES: 1. Bilateral lower extremity cellulitis having failed initially to respond to outpatient treatment measures, showing good response to initial treatment with parenteral antibiotics and Lasix with no evidence of DVT with peripheral vascular disease noted on arterial study. 2. Wound to the right leg with stasis ulcers with final culture result pending at discharge with same findings of decreased arterial studies on Doppler exam with no DVT noted on exam. 3. History of hypertension. 4. Chronic congestive heart failure with grade 1 diastolic dysfunction with last echocardiogram in July 2019 showing ejection fraction of 60%. 5. Depression with Alzheimer's disease and dementia. 6. Parkinson's disease with question of Lewy body type. REASON FOR HOSPITALIZATION: Mr. Mccracken is an 79 year-old male patient who resides at [facility] with a history of significant dementia. He was seen in the in the clinic today complaining of some lower extremity edema. Left was greater than the right. This had been going on for over 5 days. He had initially been treated with some Lasix with workup with Doppler studies which were found to be negative. He has a history of chronic venous stasis ulcers and is having [facility] wrap the legs with bandages and do wound care. This has progressively worsened over the last several. He presented to Dr. Jones's office today and it was noted the extremities were still red, swollen and obviously had been having some drainage. A wound culture was obtained on the left leg and he was sent to the hospital for direct admission for initiation for parenteral antibiotics, having failure to respond to conservative measurements in outpatient setting. There was no lab work done in the clinic, due to the patient presenting to the clinic he was sent to the hospital for further workup. Laboratory studies on admission showed he had a white count of 5,700 with hemoglobin 12.1, hematocrit 37.0, platelet count 252,000, differential showed to be without a left shift. His ESR was elevated at 47. Chemistries showed normal electrolytes. Carbon dioxide was slightly elevated at 32 with BUN of 17 with creatinine of 1.33 with the patient's baseline being around 1.25. Lactic acid 1.8. Liver functions all was negative. C-reactive protein was elevated at 1.1. BNP was normal at 97. Urinalysis was within normal limits. Radiographic studies: Arterial Doppler study of the right leg, due to the fact there was decreased pulses compared to the left showed per radiology interpretation, likely small early arthrosclerotic occlusive lesion in the right anterior tibial artery or right dorsal pedis artery, was noted unremarkable in the more proximal right lower extremity arterial system. Chest x-ray showed stable chest compared to 2018 with no new findings. A review of his medical records showed he had an echocardiogram done in July of 2019. At that time, it showed an estimated ejection fraction of 60% with a grade 1 diastolic dysfunction. The patient was directly admitted for initiation of as necessary therapy given the bilateral edema and failure to respond as an outpatient. He was admitted in stable condition. LABORATORY STUDIES: White count was 5,700 with hemoglobin 12.1 and hematocrit 37.0. Differential showed to be without a left shift. His initial ESR was 47. Chemistries on discharge were normal electrolytes with a BUN of 1.19, lactic acid 1.8. C-reactive protein was 1.1. Urinalysis was within normal limits. MICROBIOLOGY: Blood cultures were negative for 5 days. Wound was pending at discharge. RADIOLOGY: He had bilateral lower extremity ultrasound, both arterial and Doppler. No DVT noted on Doppler studies. His findings on the arterial side did show a decreased flow with peripheral vascular disease. Please see those reports for details. Chest x-ray showed senescent changes with no acute infiltrate, stable since January of 2018. HOSPITAL COURSE: Mr. Mccracken was admitted for bilateral lower extremity edema and started on aggressive management with Lasix for diuresis and antibiotic coverage with Rocephin and vancomycin per pharmacy protocol. He did show good response to treatment course and was felt clinically stable enough to continue with outpatient management. DISCHARGE ASSESSMENT: VITAL SIGNS: Temperature 98.9, pulse 62, blood pressure 107/68, respirations 18, oxygen saturation 99% on room air. GENERAL: The patient is resting comfortably and in no acute distress. He is alert. CHEST: Clear to auscultation. HEART: Regular rate and rhythm. ABDOMEN: Soft, non-tender, positive bowel sound. EXTREMITIES: Bilaterally showed chronic changes from venous incompetence with no signs of edema. There was scaling to both lower extremities from previous lymphatic and serous fluid leakage ulcer on the medial aspect of his right lower extremity which showed to be healing good with no signs of infection or drainage. Pulses were faint but palpable bilaterally. NEUROLOGIC: Alert and oriented x 3. PLAN: Mr. Mccracken was discharged on 10/19/[address] Jones as scheduled. He was to return back to [facility]. He is to resume his previous medications as instructed. He was continued coverage with antibiotic for doxycycline. He is also to continue with Lasix as previous hospitalization. He is already on aspirin, no additional antiplatelets were started. DIET: Usual diet. ACTIVITIES: Resume his usual activities but keep his legs elevated while in a chair or in bed. DISPOSITION: The patient was discharged back to [facility]. CONDITION ON DISCHARGE: Stable and improved. DISCHARGE MEDICATIONS PRESCRIBED: Doxycycline 100 mg every 12 hours for an additional 10 days. The rest of his medications prior to hospitalization were continued as is. #[id number] [facility]
== END 2019-10-19 15:30 | DRG 603 ==
LOC: MS 12:55 → UNDOADMIN 13:33
PROVIDERS: ADMIT Nurse Practitioner Family; ATTEND Nurse Practitioner Family
DX: L03.115 Cellulitis of right lower limb (principal); I50.32 Chronic diastolic (congestive) heart failure; L03.116 Cellulitis of left lower limb; I11.0 Hypertensive heart disease with heart failure; G30.9 Alzheimer's disease, unspecified; F02.80 Dementia in other diseases classified elsewhere, unspecified severity, without behavioral disturbance, psychotic disturbance, mood disturbance, and anxiety; G20 Parkinson's disease; G31.83 Neurocognitive disorder with Lewy bodies; F32.9 Major depressive disorder, single episode, unspecified; I87.2 Venous insufficiency (chronic) (peripheral); I73.9 Peripheral vascular disease, unspecified; E78.5 Hyperlipidemia, unspecified

== ENCOUNTER → 2019-12-15 | Outpatient (CLI) | payer MEDICARE, OTHER | LOC: YCHH 15:01 | PROVIDERS: ATTEND Family Medicine | DX: S81.801A Unspecified open wound, right lower leg, initial encounter (principal); D64.9 Anemia, unspecified; R79.89 Other specified abnormal findings of blood chemistry; R70.0 Elevated erythrocyte sedimentation rate; R79.82 Elevated C-reactive protein (CRP) ==

== ENCOUNTER → 2019-12-18 | Outpatient (CLI) | payer MEDICARE, OTHER | LOC: YCHH 10:48 | PROVIDERS: ATTEND Family Medicine | DX: D64.9 Anemia, unspecified (principal); R79.89 Other specified abnormal findings of blood chemistry; R70.0 Elevated erythrocyte sedimentation rate ==

== ENCOUNTER → 2020-02-18 | Outpatient (CLI) | payer MEDICARE, OTHER | LOC: GMAM 16:51 | PROVIDERS: ATTEND Family Medicine | DX: S61.501D Unspecified open wound of right wrist, subsequent encounter (principal) ==

== ENCOUNTER 2020-04-18 13:34 | Emergency (ER) | payer MEDICARE, OTHER ==
[2020-04-18] MEDS ORDERED: SODIUM CHLORIDE 0.9% (FLUSH) 10 ML SYG IV PRN (13:45)
--- NOTE | 2020-04-18 13:47 | ED.PDOC ---
History of Present Illness - General Time Seen by Provider: 04/18/20 13:43 Source: patient, [facility] records - History of Present Illness Initial Comments: 79 yo male with PMH of venous insufficiency, lower extremity edema, chronic venous stasis dermatitis who is sent to ED from [facility] for cc of altered mental status. Patient was reportedly found lying on the bathroom floor this morning and had soiled himself and was more confused than usual. It was unknown if he had fallen or hurt himself. He was brought to the ED by jail transport staff. Upon arrival here patient noted to be stable and in no distress. He reports feeling slightly confused but otherwise is without any complaints or pain. He reports that he had to urinate and was unable to wait any longer for the nursing staff there so he ambulated on his own with his wal ker to the bathroom and attempted to urinate. He is unsure how he ended up on the floor. He denies falling and denies specifically any head or neck pain or injury, chest pain, abdominal pain, back pain, hip pain, extremity pain, vision changes, weakness, numbness, etc. Allergies/Adverse Reactions: Allergies Donepezil Allergy (Verified 11/14/19 16:37) Home Medications: Ambulatory Orders Aspirin [Aspirin EC Low Dose] 81 mg PO DAILY 08/13/18 Bupropion HCl [Bupropion Hydrochloride E] 150 mg PO BID 08/13/18 Cholecalciferol [Vitamin D3] 5,000 unit PO DAILY 08/13/18 Cyanocobalamin [B-12] 1,000 mcg PO DAILY 08/13/18 Fexofenadine HCl [[place] Allergy] 180 mg PO DAILY 08/13/18 Furosemide [Lasix] 40 mg PO DAILY 08/13/18 Mirabegron [Myrbetriq] 25 mg PO BEDTIME 08/13/18 Potassium Chloride [Micro-K] 16 meq PO DAILY 08/13/18 Pravastatin Sodium 20 mg PO BEDTIME 08/13/18 Ropinirole Hydrochloride [Ropinirole HCl] 4 mg PO BID 08/13/18 Acetaminophen [Tylenol] 325 - 650 mg PO Q4HR PRN 10/16/19 Escitalopram Oxalate [Lexapro] 20 mg PO BEDTIME 10/16/19 Pimavanserin Tartrate [Nuplazid] 34 mg PO BEDTIME 10/16/19 Polyethylene Glycol 3350 [Miralax] 17 gm PO DAILY 10/16/19 Review of Systems - Review of Systems Review of Systems: 04/18/20 14:39 as per HPI All other Systems: Reviewed and Negative Past Medical History (General) - Patient Medical History Hx Stroke: No Hx Dementia: Yes Hx of COPD: No Hx Cardiac Disorders: Yes Hx Congestive Heart Failure: Yes Hx Hypertension: Yes Hx Diabetes: No Hx MRSA: No - Vaccination History Hx Tetanus, Diphtheria Vaccination: - unknown Hx Influenza Vaccination: Yes Hx Pneumococcal Vaccination: Yes - Social History Hx Tobacco Use: Yes Hx Depression: Yes Family Medical History - Family History Mother Family History: No Known Physical Exam - Physical Exam General Appearance: Alert, Comfortable, No apparent distress Eye Exam: bilateral normal Ears, Nose, Throat: hearing grossly normal, normal ENT inspection Neck: non-tender, full range of motion, supple, normal inspection Respiratory: chest non-tender, lungs clear, normal breath sounds, no respiratory distress, no accessory muscle use Cardiovascular/Chest: normal peripheral pulses, regular rate, rhythm, no gallop, no JVD, no murmur Peripheral Pulses: radial,right: 2+, radial,left: 2+ Gastrointestinal/Abdominal: non tender, soft, no organomegaly Back Exam: normal inspection, no CVA tenderness, no vertebral tenderness Extremity: normal range of motion, non-tender, normal inspection, no calf tenderness, normal capillary refill, pedal edema - 1+ BL LE non-pitting edema, evidence of scattered small well-healing wounds to BL feet from chronic venous stasis dermatitis Neurologic: record keeper II-XII nml as tested, no motor/sensory deficits, alert, normal mood/affect, other - oriented to month and place but not year, date, day of the week Skin Exam: normal color, warm/dry Progress - Progress Progress: 04/18/20 14:40 Altered mental status -consider dehydration, metabolic derangement, UTI, other infection, iatrogenic, dementia, hip/pelvic fracture, rhabdomyolysis, other -no evidence of injury to head or neck -pt stable, NAD, no complaints -obtain bloodwork, cardiac work-up, UA, CXR, pelvic XR 04/18/20 16:10 -Patient has remained stable. He remains awake and alert and answers all questions appropriately. I suspect he is back to his baseline normal mental status. His lab work is largely unremarkable from chronic, elevated creatinine is noted but appears at baseline. His UA is unremarkable. Cardiac work-up and chest x-ray and pelvic x-ray also unremarkable for acute processes. -Suspect patient may have been mildly dehydrated as cause of his brief altered mental status which now seems resolved. No emergent etiology appears present. Medication related altered mental status cannot be ruled out. Thus I recommend close follow-up with his primary care physician in order to closely review all his medications. Discharged back to the jail in good condition, return warnings discussed at length. Marco Antonio Chicas MD Billing #[id number] 04/18/20 13:45 IV Care:Saline Lock per Protoc QSHIFT Telemetry .ONCE Sodium Chloride 0.9% (Flush) [Saline Flush Syringe] 10 ml IV PRN PRN EKG STAT Pulse Oximetry Assessment DAILY 04/18/20 15:26 Sodium Chloride 0.9% 1000ML [Ns 1000 ml] 1,000 ml IVS ONCE 04/19/20 09:00 Pulse Ox Daily 04/19/20 13:45 EKG STAT Laboratory Results - last 24 hr 04/18/20 04/18/20 04/18/20 13:45 14:05 14:05 WBC 5.3 RBC 4.29 L Hgb 13.1 L Hct 38.5 L MCV 89.8 MCH 30.6 MCHC 34.1 RDW 15.5 H Plt Count 271 MPV 8.6 Absolute Neuts (auto) 3.80 Absolute Lymphs (auto) 1.00 Absolute Monos (auto) 0.40 Absolute Eos (auto) 0.10 Absolute Basos (auto) 0.10 Neutrophils % 70.7 Lymphocytes % 17.9 L Monocytes % 8.2 Eosinophils % 2.2 Basophils % 1.0 Sodium 134 L Potassium 4.1 Chloride 97 L Carbon Dioxide 26 Anion Gap 15.1 BUN 19 H Creatinine 1.52 H BUN/Creatinine Ratio 12.5 Random Glucose 95 Serum Osmolality 270.3 L Calcium 8.9 Total Bilirubin 0.7 AST 20 ALT 14 Alkaline Phosphatase 86 Creatine Kinase Troponin I B-Natriuretic Peptide 84.4 Serum Total Protein 7.9 Albumin 4.0 Globulin 3.9 H Albumin/Globulin Ratio 1.0 L Urine Color Yellow Urine Appearance Clear Urine pH 5.5 Ur Specific [place] 1.010 Urine Protein Negative Urine Glucose (UA) Negative Urine Ketones Negative Urine Blood Negative Urine Nitrite Negative Urine Bilirubin Negative Urine Urobilinogen 0.2 Ur Leukocyte Esterase Negative Urine RBC 0 Urine WBC 0 Ur Epithelial Cells 0 Urine Bacteria 0 04/18/20 04/18/20 14:05 14:05 WBC RBC Hgb Hct MCV MCH MCHC RDW Plt Count MPV Absolute Neuts (auto) Absolute Lymphs (auto) Absolute Monos (auto) Absolute Eos (auto) Absolute Basos (auto) Neutrophils % Lymphocytes % Monocytes % Eosinophils % Basophils % Sodium Potassium Chloride Carbon Dioxide Anion Gap BUN Creatinine BUN/Creatinine Ratio Random Glucose Serum Osmolality Calcium Total Bilirubin AST ALT Alkaline Phosphatase Creatine Kinase 132 Troponin I < 0.02 B-Natriuretic Peptide Serum Total Protein Albumin Globulin Albumin/Globulin Ratio Urine Color Urine Appearance Urine pH Ur Specific [place] Urine Protein Urine Glucose (UA) Urine Ketones Urine Blood Urine Nitrite Urine Bilirubin Urine Urobilinogen Ur Leukocyte Esterase Urine RBC Urine WBC Ur Epithelial Cells Urine Bacteria - EKG/XRAY/CT EKG: Sinus - NSR, HR 65, no ST elevs or q waves noted, axis normal, intervals normal, no prior EKG for comparison XRAY: chest - No acute processes per my read Departure - Departure Clinical Impression: Mild dehydration Dementia Qualifiers: Dementia type: unspecified type Dementia behavioral disturbance: without behavioral disturbance Qualified Code(s): F03.90 - Unspecified dementia without behavioral disturbance Time of Disposition: 16:08 Disposition: Discharge to SNF Condition: Good Instructions: Altered Mental Status (DC), Dehydration, Adult (DC) Activity: increase activity as tolerated Referrals: Pa Jones MD [Primary Care Provider] - 1 Week Home Medications: Ambulatory Orders Aspirin [Aspirin EC Low Dose] 81 mg PO DAILY 08/13/18 Bupropion HCl [Bupropion Hydrochloride E] 150 mg PO BID 08/13/18 Cholecalciferol [Vitamin D3] 5,000 unit PO DAILY 08/13/18 Cyanocobalamin [B-12] 1,000 mcg PO DAILY 08/13/18 Fexofenadine HCl [[place] Allergy] 180 mg PO DAILY 08/13/18 Furosemide [Lasix] 40 mg PO DAILY 08/13/18 Mirabegron [Myrbetriq] 25 mg PO BEDTIME 08/13/18 Potassium Chloride [Micro-K] 16 meq PO DAILY 08/13/18 Pravastatin Sodium 20 mg PO BEDTIME 08/13/18 Ropinirole Hydrochloride [Ropinirole HCl] 4 mg PO BID 08/13/18 Acetaminophen [Tylenol] 325 - 650 mg PO Q4HR PRN 10/16/19 Escitalopram Oxalate [Lexapro] 20 mg PO BEDTIME 10/16/19 Pimavanserin Tartrate [Nuplazid] 34 mg PO BEDTIME 10/16/19 Polyethylene Glycol 3350 [Miralax] 17 gm PO DAILY 10/16/19 Additional Instructions: Remain well-hydrated and gradually advance your diet and activity level as tolerated. Return ED if any concerning symptoms develop such as chest pain, shortness of breath, weakness, numbness, facial droop, slurred speech, worsening confusion, fevers, chills, abdominal pain, etc. Follow-up with your primary care physician is recommended in the next 1 to 2 weeks for repeat evaluation or sooner as needed.
[2020-04-18 14:09] VITALS: TEMP 98
--- NOTE | 2020-04-18 15:00 | RAD ---
EXAM DESCRIPTION: Chest,1 View CLINICAL HISTORY: altered mental status COMPARISON: November 14, 2019 IMPRESSION: Single AP portable upright view of the chest shows cardiac silhouette and pulmonary vasculature to be within normal limits. Moderate tortuosity the thoracic aorta. Lungs are normally aerated and clear. No obvious pleural effusion or pneumothorax is seen. Electronically signed by: Aaron Duncan MD 04/18/2020 2:58 PM CDT
--- NOTE | 2020-04-18 15:05 | RAD ---
Single frontal radiograph pelvis Indication: found on ground, AMS Comparison: June 02, 2018 Impression: No acute pelvic fracture identified. Evaluation for fracture is limited given the degree of osteopenia. If high clinical concern for acute fracture, correlation with MRI recommended given its greater sensitivity in the osteopenic patient. If the patient cannot tolerate MRI imaging or more urgent imaging is required, CT could be performed, however it is less sensitive in the osteopenic patient when compared to MRI. Moderate bilateral hip osteoarthritis. Osteopenia. If this is a new finding, DEXA scan recommended as well as evaluation for possible osteoporosis treatment. Electronically signed by: Aramis Lord MD 04/18/2020 3:03 PM CDT
[2020-04-18] MEDS ORDERED: SODIUM CHLORIDE 0.9% 1000ML 1,000 ML IVS ONE (15:26)
[2020-04-18 16:51] VITALS: BP 164/80; O2SAT 96
== END 2020-04-18 16:50 ==
LOC: ER 13:34
DX: E86.0 Dehydration (principal); F03.90 Unspecified dementia, unspecified severity, without behavioral disturbance, psychotic disturbance, mood disturbance, and anxiety; R41.82 Altered mental status, unspecified; M85.80 Other specified disorders of bone density and structure, unspecified site; M16.0 Bilateral primary osteoarthritis of hip; F32.9 Major depressive disorder, single episode, unspecified; I50.9 Heart failure, unspecified; I11.0 Hypertensive heart disease with heart failure; Z87.891 Personal history of nicotine dependence; Z79.899 Other long term (current) drug therapy; Z79.82 Long term (current) use of aspirin; Z88.8 Allergy status to other drugs, medicaments and biological substances
CPT/HCPCS: 36415; 71045; 72170; 80053; 81001; 82550; 83880; 84484; 85025; 93005; J7030

== ENCOUNTER → 2020-08-10 | Outpatient (CLI) | payer MEDICARE, OTHER | LOC: GMAM 15:35 | PROVIDERS: ATTEND Family Medicine | DX: L03.116 Cellulitis of left lower limb (principal) ==

== ENCOUNTER → 2020-08-25 | Outpatient (CLI) | payer MEDICARE, OTHER ==
--- NOTE | 2020-08-26 13:23 | CT ---
EXAM DESCRIPTION: Lower Extremity CLINICAL HISTORY: CELLULITIS LEFT FOOT COMPARISON: None Available. TECHNIQUE: Extremity CT of the left foot is performed with thin-section axial imaging. MPRs are created and reviewed as well. 3-dimensional reconstructions created on a dedicated workstation were created and are also maintained in the patient's medical record. FINDINGS: Severe arthritic changes first MTP with complete loss of the joint space and prominent marginal osteophyte formation. Mild hallux valgus and metatarsus primus varus. No other significant arthritic changes. No fracture or bone lesion. No bone destruction. No radiographic findings of osteomyelitis. Extensive small vessel calcification. Diffuse inflammation over the dorsum of the foot IMPRESSION: Arthritic changes and soft tissue swelling-cellulitis. Radiographically negative for osteomyelitis This exam was performed according to our departmental dose-optimization program, which includes automated exposure control, adjustment of the mA and/or kV according to patient size and/or use of iterative reconstruction technique. Electronically signed by: Ned Bright MD 08/26/2020 1:21 PM [facility]
== END ==
LOC: CT 11:10
PROVIDERS: ATTEND Family Medicine
DX: L03.116 Cellulitis of left lower limb (principal); M19.072 Primary osteoarthritis, left ankle and foot

== ENCOUNTER → 2020-10-13 | Outpatient (CLI) | payer MEDICARE, OTHER | LOC: YCHH 09:13 | PROVIDERS: ATTEND Family Medicine | DX: G20 Parkinson's disease (principal); E55.9 Vitamin D deficiency, unspecified; E78.2 Mixed hyperlipidemia; D64.9 Anemia, unspecified; I10 Essential (primary) hypertension ==